=== PATIENT | female | born 1985 | race African-American/Black ===

== ENCOUNTER 2020-04-12 10:30 | Emergency (ER) | payer OTHER, SELFPAY ==
[2020-04-12 10:51] VITALS: BP 140/100; PULSE 76; RESP 16; TEMP 36.7; O2SAT 100
--- NOTE | 2020-04-12 11:19 | ED.HA ---
HPI - Headache General Chief Complaint: Headache Stated Complaint: headache Time Seen by Provider: 04/12/20 11:19 Source: patient and RN notes reviewed Mode of arrival: ambulatory Limitations: no limitations History of Present Illness HPI Narrative: 35 year old female who presents to [facility] care with complaints of headache pain which started heat treat puller at about 0100. Patient states that headache woke her up and that it is across her forehead and in the back of her head, states that her head feels like a balloon . She rates her pain as 7/10 described as tension and pressure and she is sensitive to light and sound, states some dizziness with position changes. Patient denies any trauma to her head, denies any nausea or vomiting, denies any sinus congestion or any sinus drainage, no ringing in her ears. Patient states that she has never had a migraine in the past, is on Depo-Provera for control and she also has history of hypertension MD elicited complaint: headache Pertinent past history: hypertension Onset (ago): hour(s) Time: 01:00 Location: frontal and occipital Severity: moderate Pain scale (0-10): 7 Quality & Timing: pressure and other (tension) Exacerbating factors: light and noise Relieving factors: nothing Context: occurred at rest Associated symptoms: photophobia, sensitivity to sound and lightheadedness (with position changes) Treatments prior to arrival: ibuprofen (0700) Related Data Home Medications Medication Instructions Recorded Confirmed atorvastatin 08/06/19 blood sugar diagnostic [True 08/06/19 08/06/19 Metrix Glucose Test Strip] ibuprofen 08/06/19 insulin glargine [Dheerajaglar KwmaverickPen unit SUBCUT 08/06/19 U-100 Insulin] lancets [TRUEplus Lancets] 08/06/19 08/06/19 medroxyprogesterone mg IM 08/06/19 metformin mg 08/06/19 glimepiride mg 04/12/20 lisinopril 04/12/20 Allergies Allergy/AdvReac Type Severity Reaction Status Date / Time No Known Allergies Allergy Verified 08/06/19 14:47 Review of Systems Review of Systems: Narrative: CONSTITUTIONAL: Denies fever, chills, or sweats. EYES: Denies visual changes, redness, or discharge. ENT: Denies rhinorrhea, congestion, sore throat, or otalgia. CARDIOVASCULAR: Denies chest pain, palpitations, or edema. RESPIRATORY: Denies cough or dyspnea. GASTROINTESTINAL: Denies abdominal pain, nausea, vomiting, or diarrhea. GENITOURINARY: Denies dysuria or hematuria. SKIN: Denies rash or itching. MUSCULOSKELETAL: Denies back pain, joint pain, or myalgia. NEUROLOGIC: Positive headache, no numbness, or weakness, lightheadedness with position changes, sensitive to light and sound. PSYCHIATRIC: Denies anxiety or depression. All systems reviewed & are unremarkable except as noted in HPI and below PMFSH Past Medical History Medical History (Updated 04/13/20 @ 00:00 by Ankush Cortes) Hyperlipidemia Hypertension Type II diabetes mellitus Surgical History Surgical History (Updated 08/04/19 @ 12:19 by Constantin Tello) No history of previous surgery Social History Social History (Updated 04/15/20 @ 14:02 by Jennifer Quiles NP) Smoking status: Never smoker Living arrangements: with family Gender identity (if verbalized by the patient): Female Comments At time of signature, agree with nursing past medical, surgical, social history. There is no relevant family history pertinent to the presenting complaint Exam Narrative: Exam Narrative: GENERAL: Well-appearing, well-nourished, and in no acute distress. HEAD: Normocephalic, atraumatic. EYES: PERRLA and EOMI.no nystagmus noted ENT: Nares clear, no rhinorrhea or epistaxis. Mucous membranes moist.TM's normal with good light reflex, throat pink with no exudates or lesions, no tonsil swelling noted NECK: Supple.no lymphadenopathy CHEST: Clear to auscultation. No respiratory distress.SAO2 100% on room air HEART: Regular rate and rhythm. No murmur heard. Normal peripheral pulses. ABDOM
[2020-04-12] MEDS: KETOROLAC (*BKC) 60 MG/2 ML VIAL IM (11:40)
[2020-04-12 12:14] VITALS: BP 145/93
== END 2020-04-12 12:14 | disposition home or self-care (01) ==
PROVIDERS: Emergency Provider Registered Nurse
DX: R51 Headache (principal); E78.5 Hyperlipidemia, unspecified; I10 Essential (primary) hypertension; E11.9 Type 2 diabetes mellitus without complications
CPT/HCPCS: 96372; 99213; G0463; J1885

== ENCOUNTER 2022-11-30 09:57 | Emergency (ER) | payer OTHER, SELFPAY ==
[2022-11-30 10:05] VITALS: BP 142/101; PULSE 82; RESP 16; TEMP 36.5; O2SAT 100
--- NOTE | 2022-11-30 10:07 | ED.DENTAL ---
HPI - Dental/Oral General Chief complaint: Dental/Oral Stated complaint: Mouth Pain Time Seen by Provider: 11/30/22 10:05 Source: patient Mode of arrival: ambulatory Limitations: no limitations History of Present Illness HPI Narrative: Ms. Witt is a 37-year-old female patient presenting to the clinic today with complaints of lip pain 1-2 days. She reports she had tried Abreva on it and it made the symptoms worse. States she has never had a fever blister before. Denies any history of HSV. Denies any fever or chills. Denies any other sores in her mouth for sore throat. Related Data Home Medications Medication Instructions Recorded Confirmed atorvastatin 40 mg tablet 40 mg DIRECTED 08/06/19 11/30/22 blood sugar diagnostic (True 08/06/19 11/30/22 Metrix Glucose Test Strip) lancets 33 gauge (TRUEplus Lancets) 08/06/19 11/30/22 metformin 500 mg tablet 500 mg DIRECTED 08/06/19 11/30/22 lisinopril 10 mg tablet 10 mg DIRECTED 04/12/20 11/30/22 dulaglutide 3 mg/0.5 mL 3 mg subcut DIRECTED 11/30/22 11/30/22 subcutaneous pen injector (Trulicity) Allergies Allergy/AdvReac Type Severity Reaction Status Date / Time No Known Allergies Allergy Verified 08/06/19 14:47 Review of Systems Review of Systems: Pertinent positives per HPI. Patient denies any fever, chills, rash, headache, visual changes, dizziness, cough, shortness of breath, chest pain, palpitations, nausea, vomiting, diarrhea, constipation, abdominal pain, or any urinary issues. COUNTS INCLUDE 234 BEDS AT THE [facility] Past Medical History Medical History (Updated 11/30/22 @ 10:18 by Nickolas Prasad APRN) Hyperlipidemia Hypertension Type II diabetes mellitus Surgical History Surgical History (Updated 08/04/19 @ 12:19 by Constantin Tello) No history of previous surgery Social History Social History (Updated 04/15/20 @ 14:02 by Jennifer Quiles NP) Smoking status: Never smoker Living arrangements: with family Gender identity (if verbalized by the patient): Female Comments At the time of my signature, I reviewed and agree with the nursing past medical, surgical, social, and family history. There is no relevant family history pertinent to the patient complaint. Exam Narrative: General: Well-developed, well nourished, in no apparent distress Head: Normocephalic, atraumatic Eyes: Pupils equally round and reactive to light bilaterally, EOM intact, sclera and conjunctive clear, no discharge, lids normal Ears: TMs intact and clear, ear canals clear, no drainage, grossly hearing normal. Nose: Nares patent, no discharge, no inflammation, no sinus tenderness. Mouth: Oral pharynx without lesions or masses, good dentition, MMM. Blister like lesion to the left upper lip with yellowish crusting. Tender to palpation Neck: Supple, trachea midline, no enlargement of anterior or posterior cervical nodes, no thyroid masses or goiter palpable. Cardio: Regular rate and rhythm, s1 and s2 normal, no murmur appreciated. Resp: Clear to auscultation bilaterally, no rhonchi, rales, wheezing or rubs Course Course Emergency Course: Portions of this record may have been created with voice recognition software. Level of Care: Express Care Visit Vital Signs Vital signs: Vital Signs Temperature 36.5 C 11/30/22 10:05 Pulse Rate 82 11/30/22 10:05 Respiratory Rate 16 11/30/22 10:05 Blood Pressure 142/101 H 11/30/22 10:05 Pulse Oximetry 100 11/30/22 10:05 Oxygen Delivery Room Air 11/30/22 10:05 Temperature 36.5 C 11/30/22 10:05 Pulse Rate 82 11/30/22 10:05 Respiratory Rate 16 11/30/22 10:05 Blood Pressure 142/101 H 11/30/22 10:05 Pulse Oximetry 100 11/30/22 10:05 Oxygen Delivery Room Air 11/30/22 10:05 Vital signs reviewed MDM - Dental/Oral MDM Narrative Medical decision making narrative: At the time of the patient is resting comfortably on exam table. I suspect patient may have a staph infection versus
== END 2022-11-30 10:25 | disposition home or self-care (01) ==
PROVIDERS: Emergency Provider Nurse Practitioner Family
DX: L08.89 Other specified local infections of the skin and subcutaneous tissue (principal); B95.8 Unspecified staphylococcus as the cause of diseases classified elsewhere; E78.5 Hyperlipidemia, unspecified; I10 Essential (primary) hypertension; E11.9 Type 2 diabetes mellitus without complications
CPT/HCPCS: 99213; G0463

== ENCOUNTER 2022-12-16 11:26 | Emergency (ER) | payer OTHER, SELFPAY ==
--- NOTE | 2022-12-16 11:29 | ED.URI ---
HPI - URI/Sore Throat General Chief Complaint: Upper Respiratory Infection Stated Complaint: Sinus Time Seen by Provider: 12/16/22 11:30 Source: patient Mode of arrival: ambulatory Limitations: no limitations History of Present Illness HPI Narrative: Narda is a 37-year-old female patient presenting to the clinic today with sinus congestion, ear pain, sinus pressure, headache, and runny nose times 3-4 days. She reports no known fever or chills. Denies any shortness of breath or chest pain. No known exposure to anyone with COVID, flu, or strep. Has been taking Flonase and Zyrtec without relief. MD elicited complaint: rhinorrhea, nasal congestion and sinus pain Related Data Home Medications Medication Instructions Recorded Confirmed atorvastatin 40 mg tablet 40 mg DIRECTED 08/06/19 11/30/22 blood sugar diagnostic (True 08/06/19 11/30/22 Metrix Glucose Test Strip) lancets 33 gauge (TRUEplus Lancets) 08/06/19 11/30/22 metformin 500 mg tablet 500 mg DIRECTED 08/06/19 11/30/22 lisinopril 10 mg tablet 10 mg DIRECTED 04/12/20 11/30/22 dulaglutide 3 mg/0.5 mL 3 mg subcut DIRECTED 11/30/22 11/30/22 subcutaneous pen injector ([facility]) amlodipine 5 mg tablet mg 12/16/22 12/16/22 cetirizine 10 mg tablet mg 12/16/22 etonogestrel 0.12 mg-ethinyl vag ring vaginal 12/16/22 12/16/22 estradiol 0.015 mg/24 hr vaginal ring ([facility]) fluticasone propionate 50 intranasal 12/16/22 mcg/actuation nasal spray,suspension Allergies Allergy/AdvReac Type Severity Reaction Status Date / Time No Known Allergies Allergy Verified 12/16/22 11:44 Review of Systems Review of Systems: Pertinent positives per HPI. Patient denies any fever, chills, rash, visual changes, dizziness, cough, shortness of breath, chest pain, palpitations, nausea, vomiting, diarrhea, constipation, abdominal pain, or any urinary issues. PMFSH Past Medical History Medical History Hyperlipidemia Hypertension Type II diabetes mellitus Surgical History Surgical History No history of previous surgery Social History Social History Smoking status: Never smoker Living arrangements: with family Gender identity (if verbalized by the patient): Female Comments At the time of my signature, I reviewed and agree with the nursing past medical, surgical, social, and family history. There is no relevant family history pertinent to the patient complaint. Exam Narrative: General: Well-developed, well nourished, in no apparent distress Head: Normocephalic, atraumatic Eyes: Pupils equally round and reactive to light bilaterally, EOM intact, sclera and conjunctive clear, no discharge, lids normal Ears: TMs intact and congested, ear canals clear, no drainage, grossly hearing normal. Nose: Nares patent, clear nasal discharge, moderate inflammation to posterior turbinates, maxillary sinus tenderness. Mouth: Oral pharynx without lesions or masses, good dentition, MMM. Postnasal drip Neck: Supple, trachea midline, no enlargement of anterior or posterior cervical nodes, no thyroid masses or goiter palpable. Cardio: Regular rate and rhythm, s1 and s2 normal, no murmur appreciated. Resp: Clear to auscultation bilaterally, no rhonchi, rales, wheezing or rubs Course Course Emergency Course: Portions of this record may have been created with voice recognition software. Level of Care: Express Care Visit Vital Signs Vital signs: Vital Signs Temperature 36.9 C 12/16/22 11:30 Pulse Rate 80 12/16/22 11:30 Respiratory Rate 16 12/16/22 11:30 Blood Pressure 148/102 H 12/16/22 11:30 Pulse Oximetry 100 12/16/22 11:30 Oxygen Delivery Room Air 12/16/22 11:30 Temperature 36.9 C 12/16/22 11:30 Pulse Rate 80 12/16/22 11:30 Resp
[2022-12-16 11:30] VITALS: BP 148/102; PULSE 80; RESP 16; TEMP 36.9; O2SAT 100
--- NOTE | 2022-12-16 11:36 | PC.NURSE ---
PT'S BLOOD PRESSURE IS HIGH IN TRIAGE TODAY. PT STATES SHE TAKES BLOOD PRESSURE MEDS BUT DID NOT TAKE IT TODAY.
[2022-12-16 12:13] VITALS: BP 149/102; PULSE 76
== END 2022-12-16 12:13 | disposition home or self-care (01) ==
PROVIDERS: Emergency Provider Nurse Practitioner Family
DX: J06.9 Acute upper respiratory infection, unspecified (principal); Z20.822 Contact with and (suspected) exposure to COVID-19; E78.5 Hyperlipidemia, unspecified; I10 Essential (primary) hypertension; E11.9 Type 2 diabetes mellitus without complications
CPT/HCPCS: 87426; 99213; C9803; G0463

== ENCOUNTER 2023-08-04 11:04 | Emergency (ER) | payer OTHER, SELFPAY ==
[2023-08-04 11:14] VITALS: BP 105/79; PULSE 87; RESP 16; TEMP 36.6; O2SAT 100
[2023-08-04 11:44] LABS: Glucose Point of Care 94 mg/dl (65-105)
--- NOTE | 2023-08-04 12:20 | ED.NAVMDI ---
HPI - Nausea/Vomiting/Diarrhea General Chief complaint: Nausea/Vomiting/Diarrhea Stated complaint: diarrhea,headache, stomach gas Time Seen by Provider: 08/04/23 11:20 Source: patient Mode of arrival: ambulatory Limitations: no limitations History of Present Illness HPI Narrative: Narda is a 38-year-old female patient presenting to the clinic today with complaints of diarrhea, headache, and station x1 day. She reports symptoms started yesterday. Denies any fever or chills. Does reports some body aches as well. She is diabetic and taking ozempic but states she has been on this medication for some time. Is having liquid diarrhea. Is unsure of how many diarrhea stools she has had Related Data Home Medications Medication Instructions Recorded Confirmed atorvastatin 40 mg tablet 40 mg PO DIRECTED 08/06/19 08/04/23 blood sugar diagnostic (True 08/06/19 11/30/22 Metrix Glucose Test Strip) lancets 33 gauge (TRUEplus Lancets) 08/06/19 11/30/22 metformin 500 mg tablet 500 mg PO DAILY 08/06/19 08/04/23 lisinopril 10 mg tablet 10 mg PO DIRECTED 04/12/20 08/04/23 amlodipine 5 mg tablet 5 mg PO DAILY 12/16/22 08/04/23 cetirizine 10 mg tablet 10 mg PO DAILY 12/16/22 08/04/23 etonogestrel 0.12 mg-ethinyl 1 vag ring vaginal WE 12/16/22 08/04/23 estradiol 0.015 mg/24 hr vaginal ring ([facility]) fluticasone propionate 50 1 spray intranasal DAILY 12/16/22 08/04/23 mcg/actuation nasal spray,suspension empagliflozin 25 mg tablet 25 mg PO DAILY 08/04/23 08/04/23 (Jardiance) semaglutide 2 mg/dose (8 mg/3 mL) 2 mg subcut WEEKLY 08/04/23 08/04/23 subcutaneous pen injector (Ozempic) Allergies Allergy/AdvReac Type Severity Reaction Status Date / Time No Known Allergies Allergy Verified 08/04/23 11:16 Review of Systems Review of Systems: Pertinent positives per HPI. Patient denies any fever, chills, rash, headache, visual changes, dizziness, cough, shortness of breath, chest pain, palpitations, nausea, vomiting, diarrhea, constipation, abdominal pain, or any urinary issues. [facility] Past Medical History Medical History Hyperlipidemia Hypertension Type II diabetes mellitus Surgical History Surgical History No history of previous surgery Social History Social History Smoking status: Never smoker Living arrangements: with family Gender identity (if verbalized by the patient): Female Comments At the time of my signature, I reviewed and agree with the nursing past medical, surgical, social, and family history. There is no relevant family history pertinent to the patient complaint. Exam Narrative: General: Well-developed, well nourished, in no apparent distress Head: Normocephalic, atraumatic Eyes: Pupils equally round and reactive to light bilaterally, EOM intact, sclera and conjunctive clear, no discharge, lids normal Ears: TMs intact and clear, ear canals clear, no drainage, grossly hearing normal. Nose: Nares patent, no discharge, no inflammation, no sinus tenderness. Mouth: Oral pharynx without lesions or masses, good dentition, MMM. Neck: Supple, trachea midline, no enlargement of anterior or posterior cervical nodes, no thyroid masses or goiter palpable. Cardio: Regular rate and rhythm, s1 and s2 normal, no murmur appreciated. Resp: Clear to auscultation bilaterally, no rhonchi, rales, wheezing or rubs Course Course Emergency Course: Portions of this record may have been created with voice recognition software. Level of Care: Express Care Visit Vital Signs Vital signs: Vital Signs Temperature 36.6 C 08/04/23 11:14 Pulse Rate 87 08/04/23 11:14 Respiratory Rate 16 08/04/23 11:14 Blood Pressure 105/79 08/04/23 11:14 Pulse Oximetry 100 08/04/23 11:14 Oxygen Delivery Room Air 0
== END 2023-08-04 12:35 | disposition home or self-care (01) ==
PROVIDERS: Emergency Provider Nurse Practitioner Family
DX: B34.9 Viral infection, unspecified (principal); R19.7 Diarrhea, unspecified; N39.0 Urinary tract infection, site not specified; B96.1 Klebsiella pneumoniae [K. pneumoniae] as the cause of diseases classified elsewhere; Z20.822 Contact with and (suspected) exposure to COVID-19; E78.5 Hyperlipidemia, unspecified; I10 Essential (primary) hypertension; E11.9 Type 2 diabetes mellitus without complications
CPT/HCPCS: 81003; 82948; 87077; 87086; 87186; 87426; 87804; 99213; C9803; G0463

== ENCOUNTER 2023-11-29 17:24 | Emergency (ER) | payer OTHER, SELFPAY ==
[2023-11-29 17:35] VITALS: BP 122/89; PULSE 93; RESP 20; TEMP 37.2; O2SAT 100
--- NOTE | 2023-11-29 17:48 | ED.NAVMDI ---
HPI - Nausea/Vomiting/Diarrhea General Chief complaint: Nausea/Vomiting/Diarrhea Stated complaint: throwing up,diarrhea,tired Time Seen by Provider: 11/29/23 17:48 Source: patient Mode of arrival: ambulatory Limitations: no limitations History of Present Illness HPI Narrative: 38-year-old female presents with complaint of nausea vomiting diarrhea, fatigue, body aches and headache since this afternoon. Afebrile. Reports that she has vomited 3 times, had 1 episode of diarrhea. Unable to keep down solid food but has taken some sips of water. Reports abdominal cramping. Denies . No urinary symptoms. All systems reviewed and negative except as noted above. Related Data Home Medications Medication Instructions Recorded Confirmed atorvastatin 40 mg tablet 40 mg PO DIRECTED 08/06/19 11/29/23 blood sugar diagnostic (True 08/06/19 11/30/22 Metrix Glucose Test Strip) lancets 33 gauge (TRUEplus Lancets) 08/06/19 11/30/22 metformin 500 mg tablet 500 mg PO DAILY 08/06/19 11/29/23 lisinopril 10 mg tablet 10 mg PO DIRECTED 04/12/20 11/29/23 amlodipine 5 mg tablet 5 mg PO DAILY 12/16/22 11/29/23 cetirizine 10 mg tablet 10 mg PO DAILY 12/16/22 11/29/23 etonogestrel 0.12 mg-ethinyl 1 vag ring vaginal WE 12/16/22 11/29/23 estradiol 0.015 mg/24 hr vaginal ring ([facility]) fluticasone propionate 50 1 spray intranasal DAILY 12/16/22 08/04/23 mcg/actuation nasal spray,suspension empagliflozin 25 mg tablet 25 mg PO DAILY 08/04/23 11/29/23 (Jardiance) semaglutide 2 mg/dose (8 mg/3 mL) 2 mg subcut WEEKLY 08/04/23 11/29/23 subcutaneous pen injector (Ozempic) Allergies Allergy/AdvReac Type Severity Reaction Status Date / Time No Known Allergies Allergy Verified 11/29/23 17:39 Review of Systems Review of Systems: CONSTITUTIONAL: Denies fever, chills, or sweats. EYES: Denies visual changes, redness, or discharge. ENT: Denies rhinorrhea, congestion, sore throat, or otalgia. CARDIOVASCULAR: Denies chest pain, palpitations, or edema. RESPIRATORY: Denies cough or dyspnea. GASTROINTESTINAL: Reports abdominal cramping, nausea, vomiting, or diarrhea. GENITOURINARY: Denies dysuria or hematuria. SKIN: Denies rash or itching. MUSCULOSKELETAL: Denies back pain, joint pain, or myalgia. NEUROLOGIC: Denies headache, numbness, or weakness. PSYCHIATRIC: Denies anxiety or depression. All other systems reviewed are negative, except as documented in HPI. [facility] Past Medical History Medical History Hyperlipidemia Hypertension Type II diabetes mellitus Surgical History Surgical History (Reviewed 12/16/22 @ 11: by Nickolas Prasad APRN) No history of previous surgery Social History Social History (Reviewed 12/16/22 @ 11: by Nickolas Prasad APRN) Smoking status: Never smoker Living arrangements: with family Gender identity (if verbalized by the patient): Female Comments At time of signature, agree with nursing past medical, surgical, social and family history. There is no relevant family history pertinent to the presenting complaint. Exam Narrative: GENERAL: This is a well-nourished, well-developed patient, patient ill-appearing but no acute distress. HEAD: normocephalic, atraumatic. EYES: PERRL. Sclera clear/white. Vision is grossly intact. EARS: External ears normal, auditory canals clear and without drainage, TMs normal without perforation. Hearing grossly intact. NOSE: External nose normal with no obvious nasal discharge, nares without redness, no rhinorrhea. THROAT: Mucous membranes moist, posterior pharynx clear. NECK: Neck supple, non-tender without lymphadenopathy, masses or thyromegaly. CARDIOVASCULAR: Regular rate and rhythm without murmurs, gallops, or rubs. RESPIRATORY: Clear to auscultation. Breath sounds equal bilaterally. No wheezes, rales, or rhonchi. GASTROINTESTINAL: Abdomen soft, non-tender, nondist
[2023-11-29] MEDS: ONDANSETRON HCL ODT 4 MG TABLET SUBLINGUAL (18:02)
== END 2023-11-29 18:29 | disposition home or self-care (01) ==
PROVIDERS: Emergency Provider Nurse Practitioner Family
DX: A08.4 Viral intestinal infection, unspecified (principal); E78.5 Hyperlipidemia, unspecified; I10 Essential (primary) hypertension; E11.9 Type 2 diabetes mellitus without complications; Z79.84 Long term (current) use of oral hypoglycemic drugs
CPT/HCPCS: 87804; 99213; A9270; G0463

== ENCOUNTER 2024-02-29 10:35 | Emergency (ER) | payer OTHER, SELFPAY ==
[2024-02-29 10:44] VITALS: BP 160/102; PULSE 80; RESP 16; TEMP 37.2; O2SAT 100
--- NOTE | 2024-02-29 10:44 | ED.URI ---
HPI - URI/Sore Throat General Chief Complaint: Upper Respiratory Infection Stated Complaint: Cough Time Seen by Provider: 02/29/24 10:44 Source: patient, RN notes reviewed and old records reviewed Mode of arrival: ambulatory Limitations: no limitations History of Present Illness HPI Narrative: Patient presents with complaints of cough, fever, runny nose for 3-4 days. Patient reports remote history of asthma. States she has been wheezing. Elevated blood pressure noted. Patient reports she has not taken her blood pressure for several days because she was taking [id number] medications to treat her symptoms. She has not had good relief of her symptoms Related Data Home Medications Medication Instructions Recorded Confirmed atorvastatin 40 mg tablet 40 mg PO DIRECTED 08/06/19 02/29/24 blood sugar diagnostic (True 08/06/19 02/29/24 Metrix Glucose Test Strip) lancets 33 gauge (TRUEplus Lancets) 08/06/19 02/29/24 metformin 500 mg tablet 500 mg PO DAILY 08/06/19 02/29/24 lisinopril 10 mg tablet 10 mg PO DIRECTED 04/12/20 02/29/24 amlodipine 5 mg tablet 5 mg PO DAILY 12/16/22 02/29/24 cetirizine 10 mg tablet 10 mg PO DAILY 12/16/22 02/29/24 etonogestrel 0.12 mg-ethinyl 1 vag ring vaginal WE 12/16/22 02/29/24 estradiol 0.015 mg/24 hr vaginal ring ([facility]) fluticasone propionate 50 1 spray intranasal DAILY 12/16/22 02/29/24 mcg/actuation nasal spray,suspension empagliflozin 25 mg tablet 25 mg PO DAILY 08/04/23 02/29/24 (Jardiance) semaglutide 2 mg/dose (8 mg/3 mL) 2 mg subcut WEEKLY 08/04/23 02/29/24 subcutaneous pen injector (Ozempic) Allergies Allergy/AdvReac Type Severity Reaction Status Date / Time No Known Allergies Allergy Verified 02/29/24 10:40 Review of Systems Review of Systems: All systems reviewed & are unremarkable except as noted in HPI and below Constitutional: Constitutional: Reports no additional constitutional complaints ENT: Reports system reviewed and no additional complaints, except as documented, Reports nasal congestion and Reports nasal discharge Cardiovascular: Cardiovascular: Reports no additional cardiovascular complaints Respiratory: Respiratory: Reports chest congestion, Reports cough, Reports pain with cough and Reports wheezing Gastrointestinal: Gastrointestinal: Reports no additional gastrointestinal complaints Musculoskeletal: Musculoskeletal: Reports myalgias Neurologic: Reports headache(s) [facility] Past Medical History Medical History Hyperlipidemia Hypertension Type II diabetes mellitus Surgical History Surgical History No history of previous surgery Social History Social History Smoking status: Never smoker Living arrangements: with family Gender identity (if verbalized by the patient): Female Comments At the time of my signature, I reviewed and agree with the nursing past medical, surgical, social, and family history. There is no relevant family history pertinent to the patient complaint. Exam Const: General: cooperative, no acute distress, alert, awake and uncomfortable Orientation/consciousness: oriented to person, oriented to place and oriented to time HENMT: Head: normal to inspection Mouth: Yes moist mucous membranes Throat: posterior oropharynx normal Resp: Effort & Inspection: normal respiratory effort and able to speak in complete sentences Auscultation: clear to auscultation bilaterally, no crackles, no rales, no rhonchi and wheezes scattered wheezes Cardio: Palpation: normal PMI Rate: regular rate Rhythm: regular rhythm Heart sounds: S1 normal heart sound present and S2 normal heart sound present Neuro: General: oriented to person, oriented to place and oriented to time Cranial nerves: Yes CN's II-XII intact bilaterally Psych: Appearance: grossly
[2024-02-29] MEDS: predniSONE 20 MG TABLET 60 MG PO (10:53)
[2024-02-29] MEDS: IPRATROPIUM 0.5 MG/ALBUTEROL SULFATE 2.5 MG AMPUL.NEB 3 ML INHALATION (10:54)
[2024-02-29 11:08] LABS: EDINFLUASCREEN Negative; EDINFLUBSCREEN Negative
[2024-02-29 11:10] VITALS: BP 142/88
== END 2024-02-29 11:25 | disposition home or self-care (01) ==
PROVIDERS: Emergency Provider Nurse Practitioner Family
DX: U07.1 COVID-19 (principal); E78.5 Hyperlipidemia, unspecified; I10 Essential (primary) hypertension; E11.9 Type 2 diabetes mellitus without complications; Z79.84 Long term (current) use of oral hypoglycemic drugs
CPT/HCPCS: 87426; 87804; 99213; G0463; J7512

== ENCOUNTER 2024-09-19 10:45 | Emergency (ER) | payer OTHER, SELFPAY ==
[2024-09-19 10:50] VITALS: BP 145/100; PULSE 113; RESP 16; TEMP 37.9; O2SAT 99
--- NOTE | 2024-09-19 11:33 | ED_ITS ---
HPI - URI/Sore Throat General Chief Complaint: Upper Respiratory Infection Stated Complaint: Bodyaches/Cough Time Seen by Provider: 09/19/24 11:33 Source: patient, RN notes reviewed and old records reviewed Mode of arrival: ambulatory Limitations: no limitations History of Present Illness HPI Narrative: Patient presents with complaints of flu-like symptoms. She reports that this began last night. She has asthma, does report that she has a barking cough although she is not wheezing. She has been using her albuterol inhaler with good results, she is also taking [id number] medications. She is not any d istress, including respiratory distress. Related Data Home Medications ?Medication ?Instructions ?Recorded ?Confirmed ?Last Taken ?Type atorvastatin 40 mg tablet 40 mg PO DIRECTED 08/06/19 09/19/24 Unknown History blood sugar diagnostic (True 08/06/19 02/29/24 Unknown History Metrix Glucose Test Strip) lancets 33 gauge (TRUEplus Lancets) 08/06/19 02/29/24 Unknown History metformin 500 mg tablet 500 mg PO DAILY 08/06/19 09/19/24 Unknown History lisinopril 10 mg tablet 10 mg PO DIRECTED 04/12/20 09/19/24 Unknown History amlodipine 5 mg tablet 5 mg PO DAILY 12/16/22 09/19/24 Unknown History cetirizine 10 mg tablet 10 mg PO DAILY 12/16/22 09/19/24 Unknown History etonogestrel 0.12 mg-ethinyl 1 vag ring vaginal WE 12/16/22 09/19/24 Unknown History estradiol 0.015 mg/24 hr vaginal ring ([place]) fluticasone propionate 50 1 spray intranasal DAILY 12/16/22 09/19/24 Unknown History mcg/actuation nasal spray,suspension empagliflozin 25 mg tablet 25 mg PO DAILY 08/04/23 09/19/24 Unknown History (Jardiance) semaglutide 2 mg/dose (8 mg/3 mL) 2 mg subcut WEEKLY 08/04/23 09/19/24 Unknown History subcutaneous pen injector (Ozempic) Allergies Allergy/AdvReac Type Severity Reaction Status Date / Time No Known Allergies Allergy Verified 09/19/24 10:52 Review of Systems Review of Systems: All systems reviewed & are unremarkable except as noted in HPI and below Constitutional: Constitutional: Reports no additional constitutional complaints, Reports body ache(s), Reports chills, Reports fever(s), Reports headache(s) and Reports lethargy ENT: Reports system reviewed and no additional complaints, except as documented, Reports nasal congestion and Reports nasal discharge Cardiovascular: Cardiovascular: Reports no additional cardiovascular complaints Respiratory: Respiratory: Reports no additional respiratory complaints, Reports chest congestion and Reports cough Gastrointestinal: Gastrointestinal: Reports no additional gastrointestinal complaints PMF Past Medical History Medical History Hyperlipidemia Hypertension Type II diabetes mellitus Surgical History Surgical History No history of previous surgery Social History Social History Smoking status: Never smoker Living arrangements: with family Gender identity (if verbalized by the patient): Female Comments At the time of my signature, I reviewed and agree with the nursing past medical, surgical, social, and family history. There is no relevant family history pertinent to the patient complaint. Exam Const: General: cooperative, no acute distress, alert and awake Orientation/consciousness: oriented to person, oriented to place and oriented to time HENMT: Head: normal to inspection Ears: TM's normal bilaterally Mouth: Yes moist mucous membranes Throat: posterior oropharynx normal Resp: Effort & Inspection: normal respiratory effort and able to speak in complete sentences Auscultation: clear to auscultation bilaterally, no crackles, no rales, no rhonchi and no wheezes Other: Croupy cough noted Cardio: Palpation: normal PMI Rate: regular rate Rhythm: regular rhythm Heart sounds: S1 normal heart sound present and S2 normal heart sound present Neuro: General: oriented to person, oriented to place and oriented to time Cranial nerves: Yes CN's II-XII intact bilaterally Psych: Appearance: grossly normal Thought process: Normal thought process present Insight: Good insight present (Psych) Judgement: Good judgement present (Psych) Course Course Level of Care: Express Care Visit Vital Signs Vital signs: Vital Signs Temperature 100.2 F H 09/19/24 10:50 Pulse Rate 113 H 09/19/24 10:50 Respiratory Rate 16 09/19/24 10:50 Blood Pressure 145/100 H 09/19/24 10:50 Pulse Oximetry 99 09/19/24 10:50 Oxygen Delivery Room Air 09/19/24 10:50 Temperature 100.2 F H 09/19/24 10:50 Pulse Rate 113 H 09/19/24 10:50 Respiratory Rate 16 09/19/24 10:50 Blood Pressure 145/100 H 09/19/24 10:50 Pulse Oximetry 99 09/19/24 10:50 Oxygen Delivery Room Air 09/19/24 10:50 Reviewed MDM - URI/Sore Throat MDM Narrative Medical decision making narrative: Positive influenza, negative COVID. Patient with asthma. She is not in any distress, no wheezing, but very croupy sounding cough. Start Tamiflu, prednisone, refill albuterol. Emergency department precautions discussed. Discharge instructions reviewed with patient, as well as provided in writing per nursing staff. The instructions also include specific and strict return/GO TO THE ER as well as f/u information. All questions have been answered, and the patient deny any further questions with discharge and discharge plan. Some parts of this dictation were generated by voice recognition software and may contain typographical and/or grammatical inaccuracies. Differential Diagnosis Differential diagnosis: Likely upper respiratory infection, otitis media, viral infection and influenza Medical Records Attestation: I reviewed the patient's medical records. Lab Data Attestation: I reviewed the patient's lab results. Discharge Plan Discharge Clinical Impression: Influenza Patient Disposition: Home, Self-Care Condition: Stable Instructions: Antibiotic Form, Influenza (ED) Additional Instructions: Take medications as prescribed. Follow-up with primary care provider. Emergency department for any new or worsening symptoms Patient Language: Maltese Prescriptions: New albuterol sulfate [Ventolin HFA] 90 mcg/actuation HFA aerosol inhaler 2 puff inhalation QID PRN (Reason: shortness of breath or wheezing) Qty: 8.5 0RF oseltamivir [Tamiflu] 75 mg capsule 75 mg PO Q12H 5 Days Qty: 10 0RF prednisone 50 mg tablet 50 mg PO DAILY Qty: 5 0RF No Action atorvastatin 40 mg tablet 40 mg PO DIRECTED metformin 500 mg tablet 500 mg PO DAILY (DME) True Metrix Glucose Test Strip Strip MISCELLANEOUS (DME) lancets [TRUEplus Lancets] 33 gauge misc MISCELLANEOUS lisinopril 10 mg tablet 10 mg PO DIRECTED cetirizine 10 mg tablet 10 mg PO DAILY amlodipine 5 mg tablet 5 mg PO DAILY fluticasone propionate 50 mcg/actuation spray,suspension 1 spray INTRANASAL DAILY etonogestrel-ethinyl estradiol [EluRyng] 0.12-0.015 mg/24 hr ring 1 vag ring VAGINAL WE Jardiance 25 mg tablet 25 mg PO DAILY Ozempic 2 mg/dose (8 mg/3 mL) pen injector 2 mg SUBCUT WEEKLY dicyclomine 20 mg tablet 20 mg PO Q6-8H PRN (Reason: abdominal pain) Qty: 20 0RF ondansetron 4 mg tablet,disintegrating 4 mg PO Q8H PRN (Reason: nausea and vomiting) Qty: 12 0RF Follow-up/Referrals: PHYSICIAN,EXTR[employer]ION PRESS SUPERVISOR [Primary Care Provider] - Stand Alone Forms: Work/School Release IP Time of Disposition: 12:08
[2024-09-19 11:48] LABS: EDCOVIDSCREEN Negative (Negative); EDINFLUASCREEN Positive (Negative); EDINFLUBSCREEN Negative (Negative)
== END 2024-09-19 12:15 | disposition home or self-care (01) ==
PROVIDERS: Emergency Provider Nurse Practitioner Family
DX: J10.1 Influenza due to other identified influenza virus with other respiratory manifestations (principal); Z20.822 Contact with and (suspected) exposure to COVID-19; I10 Essential (primary) hypertension; E11.9 Type 2 diabetes mellitus without complications; Z79.84 Long term (current) use of oral hypoglycemic drugs; E78.5 Hyperlipidemia, unspecified
CPT/HCPCS: 87426; 87804; 99213; G0463

== ENCOUNTER 2024-11-01 19:10 | Emergency (ER) | payer OTHER, SELFPAY ==
[2024-11-01 19:17] VITALS: BP 138/100; PULSE 90; RESP 19; TEMP 36.7; O2SAT 100
[2024-11-01 19:39] LABS: EDUAAPPEAR Cloudy; EDUABILI Negative (Negative); EDUABLOOD 1+ (Negative); EDUACOLOR1 Yellow; EDUAGLUCOSE 1+ (Negative); EDUAKETONE Negative (Negative); EDUALEUKO Negative (Negative); EDUANITRATE Negative (Negative); EDUAPROTEIN Negative (Negative); EDUASPGRAVITY 1.015; EDUAUROBILI 0.2
--- NOTE | 2024-11-01 19:50 | ED_ITS ---
HPI - Female Genitourinary General Chief complaint: Urogenital-Female Stated complaint: Vaginal Problems Source: patient and RN notes reviewed Mode of arrival: ambulatory Limitations: no limitations History of Present Illness HPI Narrative: 39-year-old female presents to the [facility] complaining vaginal itching x3 days. She believes she may have a yeast infection. She has been using topical Monistat the last couple days without relief. She reports having irritation externally outside her vagina. She denies any pain with urination, fevers, abdominal pain, vaginal discharge, or any other concerns. She has a history of diabetes and currently takes Trulicity and Jardiance. She denies any concerns for STIs. She currently reports she is on her period. Related Data Home Medications ?Medication ?Instructions ?Recorded ?Confirmed ?Last Taken ?Type atorvastatin 40 mg tablet 40 mg PO DIRECTED 08/06/19 09/19/24 Unknown History blood sugar diagnostic (True 08/06/19 02/29/24 Unknown History Metrix Glucose Test Strip) lancets 33 gauge (TRUEplus Lancets) 08/06/19 02/29/24 Unknown History lisinopril 10 mg tablet 10 mg PO DIRECTED 04/12/20 09/19/24 Unknown History amlodipine 5 mg tablet 5 mg PO DAILY 12/16/22 09/19/24 Unknown History etonogestrel 0.12 mg-ethinyl 1 vag ring vaginal WE 12/16/22 09/19/24 Unknown History estradiol 0.015 mg/24 hr vaginal ring (EluRyng) dulaglutide 0.75 mg/0.5 mL mg subcut 11/01/24 Unknown History subcutaneous pen injector (Trulicity) rosuvastatin 40 mg tablet mg 11/01/24 Unknown History Allergies Allergy/AdvReac Type Severity Reaction Status Date / Time No Known Allergies Allergy Verified 11/01/24 19:12 Review of Systems Review of Systems: CONSTITUTIONAL: Denies fever, chills, or sweats. EYES: Denies visual changes, redness, or discharge. ENT: Denies rhinorrhea, congestion, sore throat, or otalgia. CARDIOVASCULAR: Denies chest pain, palpitations, or edema. RESPIRATORY: Denies cough or dyspnea. GASTROINTESTINAL: Denies abdominal pain, nausea, vomiting, or diarrhea. GENITOURINARY: Denies dysuria, vaginal discharge, pain with intercourse, or hematuria. Reports vaginal itching. SKIN: Denies rash or itching. MUSCULOSKELETAL: Denies back pain, joint pain, or myalgia. NEUROLOGIC: Denies headache, numbness, or weakness. PSYCHIATRIC: Denies anxiety or depression. All other systems reviewed are negative, except as documented in HPI. COUNT INCLUDES THE [facility] Past Medical History Medical History Hyperlipidemia Hypertension Type II diabetes mellitus Surgical History Surgical History No history of previous surgery Social History Social History Smoking status: Never smoker Living arrangements: with family Gender identity (if verbalized by the patient): Female Comments At the time of my signature, I reviewed and agree with the nursing past medical, surgical, social, and family history. There is no relevant family history pertinent to the patient complaint. Exam Narrative: GENERAL: This is a well-nourished, well-developed adult, in no apparent distress. They are non ill-appearing, nontoxic appearing. HEAD: normocephalic, atraumatic. EYES: Sclera clear/white. Vision is grossly intact. EARS: External ears normal, Hearing grossly intact. NOSE: External nose normal THROAT: Mucous membranes moist NECK: Neck supple, CARDIOVASCULAR: Regular rate and rhythm without murmurs, gallops, or rubs. RESPIRATORY: Clear to auscultation. Breath sounds equal bilaterally. No wheezes, rales, or rhonchi. GENITOURINARY: Patient declines genital exam SKIN: warm, Dry, intact with no suspicious lesions or rash, good texture and turgor. NEURO: awake, alert, and oriented to person, place and time. There were no obvious focal neurologic abnormalities. EXTREMITIES: No edema noted. BACK: Nontender without deformity. Course Course Level of Care: Express Care Visit Vital Signs Vital signs: Vital Signs Temperature 98.1 F 11/01/24 19:17 Pulse Rate 90 11/01/24 19:17 Respiratory Rate 19 11/01/24 19:17 Blood Pressure 138/100 H 11/01/24 19:17 Pulse Oximetry 100 11/01/24 19:17 Oxygen Delivery Room Air 11/01/24 19:17 Temperature 98.1 F 11/01/24 19:17 Pulse Rate 90 11/01/24 19:17 Respiratory Rate 19 11/01/24 19:17 Blood Pressure 138/100 H 11/01/24 19:17 Pulse Oximetry 100 11/01/24 19:17 Oxygen Delivery Room Air 11/01/24 19:17 Reviewed MDM - Female Genitourinary MDM Narrative Medical decision making narrative: Patient's symptoms are consistent with a vaginal yeast infection. Patient was offered a genital exam and she declined. She has no concern for STIs. Urine dipstick was negative for a urinary tract infection. There was blood present however she is on her period. She has tried Monistat without relief, will prescribe fluconazole for treatment. Patient was advised to talk to her primary care provider about her Jardiance as a might be causing her symptoms. Diabetes control was discussed with the patient. The anticipatory guidance given. ED precautions discussed. Differential Diagnosis Differential diagnosis: Likely urinary tract infection, bacterial vaginosis and other (Vaginal yeast infection) Lab Data Attestation: I reviewed the patient's lab results. Labs: Lab Results 11/01/24 Range/Units 19:36 POC Urine Color Yellow POC Urine Clarity Cloudy POC Urine pH 6.0 POC Ur Specif [place] 1.015 POC Urine Protein Negative (Negative) POC Ur Glucose (UA) 1+ (Negative) POC Urine Ketones Negative (Negative) POC Urine Blood 1+ (Negative) POC Urine Nitrite Negative (Negative) POC Urine Bilirubin Negative (Negative) POC Urine Urobilinogen 0.2 POC U Leukocyte Esteras Negative (Negative) Critical Care Time Critical Care Time Critical Care Time: No Discharge Plan Discharge Clinical Impression: Vaginal yeast infection Patient Disposition: Home, Self-Care Condition: Stable Instructions: Yeast Infection (ED) Additional Instructions: Please take the fluconazole as directed. He may apply the Monistat externally if there is any irritation. Please talk to your primary care provider about your Jardiance as it is known to cause yeast infections and UTIs. Follow-up with primary care provider in 3-5 days. If you have any such concerns or worsening symptoms go to the ER for further evaluation. Patient Language: French Prescriptions: New fluconazole 150 mg tablet 150 mg PO Q72H Qty: 2 0RF No Action Trulicity 0.75 mg/0.5 mL pen injector SUBCUT rosuvastatin 40 mg tablet atorvastatin 40 mg tablet 40 mg PO DIRECTED (DME) True Metrix Glucose Test Strip Strip MISCELLANEOUS (DME) lancets [TRUEplus Lancets] 33 gauge misc MISCELLANEOUS lisinopril 10 mg tablet 10 mg PO DIRECTED amlodipine 5 mg tablet 5 mg PO DAILY etonogestrel-ethinyl estradiol [EluRyng] 0.12-0.015 mg/24 hr ring 1 vag ring VAGINAL WE Follow-up/Referrals: PHYSICIAN,FACILITIES OFFICER [Primary Care Provider] - Time of Disposition: 19:53
== END 2024-11-01 20:00 | disposition home or self-care (01) ==
PROVIDERS: Nurse Practitioner
DX: B37.31 Acute candidiasis of vulva and vagina (principal); E11.9 Type 2 diabetes mellitus without complications; Z79.84 Long term (current) use of oral hypoglycemic drugs; Z79.85 Long-term (current) use of injectable non-insulin antidiabetic drugs; I10 Essential (primary) hypertension; E78.5 Hyperlipidemia, unspecified
CPT/HCPCS: 81003; 99213; G0463

== ENCOUNTER 2025-03-08 12:04 | Emergency (ER) | payer OTHER, SELFPAY ==
[2025-03-08 12:11] VITALS: BP 160/100; PULSE 101; RESP 16; TEMP 37.3; O2SAT 99
--- NOTE | 2025-03-08 12:14 | ED_ITS ---
HPI - URI/Sore Throat General Chief Complaint: Upper Respiratory Infection Stated Complaint: Sinus Time Seen by Provider: 03/08/25 12:05 Source: patient Mode of arrival: ambulatory Limitations: no limitations History of Present Illness HPI Narrative: Patient is a 40-year-old female who presents with 2 days of congestion drainage and productive cough. Also having bilateral ear congestion and pressure. Denies any fevers, chills, nausea, vomiting, diarrhea, body aches, headache. Has taken Sudafed twice. Does have history of asthma and seasonal allergies. Patient has not taken her blood pressure medicine today. Related Data Home Medications ?Medication ?Instructions ?Recorded ?Confirmed ?Last Taken ?Type blood sugar diagnostic (True 08/06/19 02/29/24 Unknown History Metrix Glucose Test Strip) lancets 33 gauge (TRUEplus Lancets) 08/06/19 02/29/24 Unknown History lisinopril 10 mg tablet 10 mg PO DIRECTED 04/12/20 09/19/24 Unknown History amlodipine 5 mg tablet 5 mg PO DAILY 12/16/22 09/19/24 Unknown History etonogestrel 0.12 mg-ethinyl 1 vag ring vaginal WE 12/16/22 09/19/24 Unknown History estradiol 0.015 mg/24 hr vaginal ring (EluRyng) dulaglutide 0.75 mg/0.5 mL mg subcut 11/01/24 Unknown History subcutaneous pen injector (Trulicity) rosuvastatin 40 mg tablet mg 11/01/24 Unknown History glimepiride 2 mg tablet mg 03/08/25 Unknown History Allergies Allergy/AdvReac Type Severity Reaction Status Date / Time No Known Allergies Allergy Verified 03/08/25 12:14 Review of Systems Review of Systems: All systems reviewed & are unremarkable except as noted in HPI and below Constitutional: Constitutional: Denies chills, Denies fatigue, Denies fever(s), Denies headache(s), Denies malaise and Denies weakness Eyes: Eyes: Denies blurry vision, Denies itchy eyes and Denies loss of vision ENT: Reports otalgia, Denies headache(s), Reports nasal congestion, Denies sinus pain and Denies sore throat Cardiovascular: Cardiovascular: Denies chest pain, Denies irregular heart rhythm and Denies dyspnea Respiratory: Respiratory: Reports cough and Denies dyspnea Gastrointestinal: Gastrointestinal: Denies abdominal pain, Denies diarrhea, Denies nausea and Denies vomiting Musculoskeletal: Musculoskeletal: Denies back pain, Denies myalgias and Denies arthralgias Integumentary/Breasts: Skin/Breast: Denies pruritus and Denies rash Neurologic: Denies headache(s), Denies loss of vision and Denies weakness Psychiatric: Psychiatric: Reports no additional psychiatric complaints Endocrine: Endocrine: Denies fatigue Allergic/Immunologic: Allergic/Immunologic: Denies itchy eyes PMFSH Past Medical History Medical History Hyperlipidemia Hypertension Type II diabetes mellitus Surgical History Surgical History No history of previous surgery Social History Social History Smoking status: Never smoker Living arrangements: with family Gender identity (if verbalized by the patient): Female Comments At time of signature, agree with nursing past medical, surgical, social and family history. There is no relevant family history pertinent to the presenting complaint. Exam Const: General: cooperative, healthy appearing, comfortable, no acute distress and well nourished Nutritional Appearance: well nourished Orientation/consciousness: patient oriented x3 Limitations: no limitations HENMT: Head: normal to inspection, normocephalic and atraumatic Ears: hearing grossly normal bilaterally, external ears normal, TM normal on the left, EAC's normal, no periauricular adenopathy and TM abnormal bulging on the right and erythematous on the right Face/Nose/Sinus: Normal external nose present, Abnormal mucous membranes and turbinates present erythematous bilateral and diffuse, normal facial exam, sinuses nontender and face symmetric Face and sinus: normal facial exam, sinuses nontender and face symmetric Mouth: Yes Normal oral and palatal mucosa present, Yes lip normal, Yes tongue normal, Yes Normal salivary glands and ducts present, Yes oropharynx normal and Yes moist mucous membranes Teeth and gingiva: dentition normal Throat: posterior oropharynx normal, tonsils normal and uvula midline Eyes: General: appearance normal, both eyes and all related structures Alignment and Position: alignment normal and position normal Periorbital: periorbital findings normal Eyelids: eyelids normal Pupils: Equal, round and reactive pupils present Neck: Neck: normal visual inspection, full ROM, no lymphadenopathy and supple Chest: Chest palpation & inspection: normal inspection of the chest and normal palpation of entire chest wall Resp: Effort & Inspection: normal respiratory effort, able to speak in complete sentences and Actively coughing wet Auscultation: no crackles, no rales, no rhonchi and wheezes scattered wheezes and throughout Cardio: Rate: regular rate Rhythm: regular rhythm Heart sounds: S1 normal heart sound present and S2 normal heart sound present GI: Inspection: normal to inspection Skin: General skin exam: normal color and no rashes or lesions noted Neuro: General: patient oriented x3 and moves all extremities Cranial nerves: Yes Equal, round and reactive pupils present Speech: normal speech Gait exam (Neuro): Normal gait present Extrem: General: normal to inspection, full ROM and no edema Psych: Appearance: grossly normal and well kempt Mental Status: mental status grossly normal Speech and movement: Normal speech and movement present Affect: normal affect Attitude: cooperative Thought process: Normal thought process present Course Course Emergency Course: Discharge instructions reviewed with patient, as well as provided in writing per nursing staff. The instructions also include specific and strict return/GO TO THE ER as well as f/u information. All questions have been answered, and the patient deny any further questions with discharge and discharge plan. Portions of this record may have been created with voice recognition software Level of Care: Express Care Visit Vital Signs Vital signs: Vital Signs Temperature 37.3 C 03/08/25 12:11 Pulse Rate 101 H 03/08/25 12:11 Respiratory Rate 16 03/08/25 12:11 Blood Pressure 160/100 H 03/08/25 12:11 Pulse Oximetry 99 03/08/25 12:11 Oxygen Delivery Room Air 03/08/25 12:11 Temperature 37.3 C 03/08/25 12:11 Pulse Rate 101 H 03/08/25 12:11 Respiratory Rate 16 03/08/25 12:11 Blood Pressure 160/100 H 03/08/25 12:11 Pulse Oximetry 99 03/08/25 12:11 Oxygen Delivery Room Air 03/08/25 12:11 Reviewed MDM - URI/Sore Throat MDM Narrative Medical decision making narrative: Pt well hydrated appearing, in no respiratory distress, hemodynamically stable. Recommend supportive care. The patient is stable at time of discharge the clinical impression was discussed and the patient was given the opportunity to ask questions, which were addressed as completely as possible given the information available at present. Anticipatory guidance and return to care precautions were discussed and the importance of primary care follow-up was stressed and encouraged. The patient voiced understanding of the plan, indications to return, and the need for follow-up. Exam findings show no acute concerns or changes Patient is appropriate for outpatient treatment and follow-up. Differential diagnosis considered: Diego virus, strep pharyngitis, allergic rhinitis, upper respiratory tract infection, sinusitis, rhinosinusitis, nasopharyngitis. viral pharyngitis, otitis media, otitis externa, otitis effusion, foreign body, cerumen impaction, viral syndrome, and influenza.? Medical Records Attestation: I reviewed the patient's medical records. Lab Data Attestation: I reviewed the patient's lab results. Labs: Lab Results 03/08/25 Range/Units 12:25 POC Influenza A Ag Negative (Negative) POC Influenza B Ag Negative (Negative) POC SARS CoV-2 Ag Negative (Negative) Discharge Plan Discharge Clinical Impression: Upper respiratory infection Qualifiers: URI type: unspecified URI Qualified Code(s): J06.9 - Acute upper respiratory infection, unspecified Otitis media Qualifiers: Otitis media type: suppurative Chronicity: acute Laterality: right Recurrence: non-recurrent Spontaneous tympanic membrane rupture: without spontaneous rupture Qualified Code(s): H66.001 - Acute suppurative otitis media without spontaneous rupture of ear drum, right ear Patient Disposition: Home Condition: Stable Instructions: Ear Infection (GEN) Additional Instructions: Take antibiotic as prescribed. Take steroids in the morning with food. Use Tessalon Perles as needed for cough. Use inhaler with spacer as needed. Other symptomatic treatments include: -Alternate Tylenol and Motrin per package directions for fever or pain: Tylenol 650-1000mg by mouth every 4-6 hours. Do not exceed 4000mg in 24 hours. Advil (Ibuprofen) 600 mg by mouth every 6 hours. Do not exceed 2400mg in 24 hours. 8 AM: Tylenol 11 AM: Ibuprofen 2 PM: Tylenol 5 PM: Ibuprofen 8 PM: Tylenol 11 PM: Ibuprofen 2 AM: Tylenol 5 AM: Ibuprofen -Antihistamine medication such as Benadryl at night and Zyrtec/Claritin/Ines during the day can help improve symptoms. -Use Flonase twice a day for 5 days then daily to help reduce the inflammation and dry up your sinuses. -Eat and drink things that are easy to swallow, like tea or soup, or popsicles. -Oral rinses such as: Salt water gargles and/or may use topical anesthetic (eg. Chloraseptic spray) or lozenges to relieve dryness or throat pain). -Frequent hand washing or hand applied anthropologist is one of the best ways to prevent spread of infection. -Using a vaporizer or humidifier at night will also help thin secretions and help with coughing up phlegm. Call your Primary Care Doctor and make a follow-up appointment in 3 days. If your cough worsens, you develop a fever greater than 103, you develop shaking chills, a fast heartbeat, trouble breathing and/or feel you are are breathing much faster than usual, call your Primary Care Doctor or go to the ER. Your blood pressure was elevated above 120/80 today at Urgent Care. This puts you above the threshold for follow up visit with a primary care provider. High blood pressure does not usually cause any symptoms, however it may lead to kidney failure, stroke, heart disease just to name a few if untreated . Many people are anxious when seeing a provider or nurse. As a result, you are not diagnosed with hypertension at this time unless your blood pressure is persistently high at two office visits at least one week apart. Some things that can help lower blood pressure are lifestyle modifications, such as light exercise, decreased salt in diet, and weight loss. It is important to follow up with a PCP about this within 1 week. Patient Language: Portuguese Prescriptions: New albuterol sulfate 90 mcg/actuation HFA aerosol inhaler 2 puff inhalation QID PRN (Reason: shortness of breath or wheezing) Qty: 6.7 0RF (DME) Aerochamber MV Spacer See Rx Instructions .Route Qty: 1 0RF Rx Instructions: As directed amoxicillin 875 mg tablet 875 mg PO Q12H 7 Days Qty: 14 0RF benzonatate 100 mg capsule 100 mg PO BID PRN (Reason: cough) Qty: 14 0RF fluticasone propionate [Flonase Allergy Relief] 50 mcg/actuation spray,suspension 1 spray intranasal DAILY Qty: 16 0RF Rx Instructions: administer into each nostril prednisone 20 mg tablet 40 mg PO DAILY 5 Days Qty: 10 0RF No Action Trulicity 0.75 mg/0.5 mL pen injector SUBCUT rosuvastatin 40 mg tablet (DME) True Metrix Glucose Test Strip Strip MISCELLANEOUS (DME) lancets [TRUEplus Lancets] 33 gauge misc MISCELLANEOUS lisinopril 10 mg tablet 10 mg PO DIRECTED amlodipine 5 mg tablet 5 mg PO DAILY etonogestrel-ethinyl estradiol [EluRyng] 0.12-0.015 mg/24 hr ring 1 vag ring VAGINAL WE glimepiride 2 mg tablet Follow-up/Referrals: Gregory Noble MD [Physician] - 3 Days Stand Alone Forms: Work/School Release IP Time of Disposition: 12:59
[2025-03-08 12:45] LABS: EDCOVIDSCREEN Negative (Negative); EDINFLUASCREEN Negative (Negative); EDINFLUBSCREEN Negative (Negative)
== END 2025-03-08 13:05 | disposition home or self-care (01) ==
PROVIDERS: Emergency Provider Nurse Practitioner Family
DX: J06.9 Acute upper respiratory infection, unspecified (principal); H66.001 Acute suppurative otitis media without spontaneous rupture of ear drum, right ear; Z20.822 Contact with and (suspected) exposure to COVID-19; E11.9 Type 2 diabetes mellitus without complications; Z79.84 Long term (current) use of oral hypoglycemic drugs; I10 Essential (primary) hypertension; E78.5 Hyperlipidemia, unspecified
CPT/HCPCS: 87426; 87804; 99213; G0463